=== PATIENT | male | born 1980 | race African-American/Black ===

== ENCOUNTER 2018-06-25 02:39 | Emergency (ER) | payer OTHER ==
[2018-06-25] MEDS ORDERED: Fluorescein Opthalmic Strip ONE (03:26)
[2018-06-25] MEDS ORDERED: Proparacaine 0.5% Opth 15 ML BOT ONE (03:26)
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
== END 2018-06-25 05:51 | disposition still patient (30) ==
LOC: EEVIPCON 02:39 → ERS 02:39
DX: S05.11XA Contusion of eyeball and orbital tissues, right eye, initial encounter (principal); J45.909 Unspecified asthma, uncomplicated; F41.9 Anxiety disorder, unspecified; F32.9 Major depressive disorder, single episode, unspecified; Z87.891 Personal history of nicotine dependence; Y04.0XXA Assault by unarmed brawl or fight, initial encounter
CPT/HCPCS: 70450; 70486